=== PATIENT | female | born 1950 | race Caucasian/White ===

== ENCOUNTER 2024-08-18 23:48 | Emergency (ER) | payer MEDICARE, SELFPAY ==
--- NOTE | ~2024-08-18 | CT_ITS ---
EXAMINATION: CT HEAD WITHOUT CONTRAST CT FACIAL BONES WITHOUT CONTRAST CT CERVICAL SPINE WITHOUT CONTRAST CLINICAL INFORMATION: Fall. Head strike. Pain. COMPARISON: None available. TECHNIQUE: Contiguous axial imaging was performed through the head, facial bones and cervical spine without intravenous administration of contrast. Sagittal and coronal reformatted images also obtained. This CT examination was performed using dose optimization techniques as appropriate, variously including the following: *Automated exposure control *Adjustment of mA and/or kV according to patient size (this includes techniques or standardized protocols for targeted exams where dose is matched to indication/reason for exam; i.e. extremities or head) *Use of iterative reconstruction technique DLP: 894 mGy-cm FINDINGS: The lateral, third and fourth ventricles are normally aligned. The cortical sulci and basal cisterns are normally aligned as well. There is no acute territorial defects, hemorrhage or midline shift. The extra-axial spaces are unremarkable. Calvarium/scalp: Intact. Facial bones/maxillofacial sinuses: No fractures identified. The maxillofacial sinuses and mastoids are clear. The orbital structures are unremarkable. There is left infraorbital/left cheek soft tissue swelling. Cervical spine: There is grade 1 anterolisthesis C4 over C5 with mild reversal of the expected cervical spine curvature. There is diffuse mild to moderate cervical disc degenerative change with loss of disc space, endplate change and posterior osteophytes associated with diffuse mild to moderate facet osteoarthritic hypertrophic change with multilevel mild spinal canal and multilevel mild neuroforaminal narrowing. No fracture is seen. The soft tissues are unremarkable. The visualized upper lung clemens are clear. CT/CT facial bones wo IV con IMPRESSION: 1. No acute intracranial pathology. 2. No acute facial bone or cervical spine abnormalities. 3. Left infraorbital/left cheek soft tissue swelling. Electronically signed by: Rafael Lara MD 08/19/2024 03:19 AM EDT
--- NOTE | ~2024-08-18 | CT_ITS ---
EXAMINATION: CT HEAD WITHOUT CONTRAST CT FACIAL BONES WITHOUT CONTRAST CT CERVICAL SPINE WITHOUT CONTRAST CLINICAL INFORMATION: Fall. Head strike. Pain. COMPARISON: None available. TECHNIQUE: Contiguous axial imaging was performed through the head, facial bones and cervical spine without intravenous administration of contrast. Sagittal and coronal reformatted images also obtained. This CT examination was performed using dose optimization techniques as appropriate, variously including the following: *Automated exposure control *Adjustment of mA and/or kV according to patient size (this includes techniques or standardized protocols for targeted exams where dose is matched to indication/reason for exam; i.e. extremities or head) *Use of iterative reconstruction technique DLP: 894 mGy-cm FINDINGS: The lateral, third and fourth ventricles are normally aligned. The cortical sulci and basal cisterns are normally aligned as well. There is no acute territorial defects, hemorrhage or midline shift. The extra-axial spaces are unremarkable. Calvarium/scalp: Intact. Facial bones/maxillofacial sinuses: No fractures identified. The maxillofacial sinuses and mastoids are clear. The orbital structures are unremarkable. There is left infraorbital/left cheek soft tissue swelling. Cervical spine: There is grade 1 anterolisthesis C4 over C5 with mild reversal of the expected cervical spine curvature. There is diffuse mild to moderate cervical disc degenerative change with loss of disc space, endplate change and posterior osteophytes associated with diffuse mild to moderate facet osteoarthritic hypertrophic change with multilevel mild spinal canal and multilevel mild neuroforaminal narrowing. No fracture is seen. The soft tissues are unremarkable. The visualized upper lung clemens are clear. CT/CT cervical spine wo IV con IMPRESSION: 1. No acute intracranial pathology. 2. No acute facial bone or cervical spine abnormalities. 3. Left infraorbital/left cheek soft tissue swelling. Electronically signed by: Rafael Lara MD 08/19/2024 03:19 AM EDT
[2024-08-18 23:51] VITALS: BP 169/99; PULSE 104; PULSE 79; RESP 22; TEMP 36.3; O2SAT 97; O2SAT 98; BMI 16.9
[2024-08-19 00:01] VITALS: BP 169/99; PULSE 73; RESP 20; TEMP 36.3
[2024-08-19 00:04] VITALS: BP 169/99; PULSE 73; RESP 20; TEMP 36.3; O2SAT 97
--- NOTE | 2024-08-19 00:04 | ECG_ITS ---
Test Reason : FALL Blood Pressure : / mmHG Vent. Rate : 074 BPM Atrial Rate : 074 BPM P-R Int : 142 ms QRS Dur : 076 ms QT Int : 424 ms P-R-T Axes : 050 079 082 degrees QTc Int : 470 ms Normal sinus rhythm Normal ECG No previous ECGs available Referred By: Generic ED Physician Electronically Signed By:Enrique Green
[2024-08-19 01:17] LABS: Appearance Urine Clear; Color Urine Yellow; Glucose Urine UA Negative (Negative); Leukocyte Esterase Urine Negative (Negative); Nitrite Urine Negative (Negative); PH 6.5 (5.0-9.0); Specific Gravity - Urine <= 1.005 (1.005-1.025); Urine Blood Negative (Negative); Urine Ketones Negative (Negative); Urine Protein Negative (Neg-Trace)
[2024-08-19 01:21] LABS: Bacteria Urine Trace (None Seen); Hyaline Casts Urine 0-2 /LPF (0-2); RBC Urine 0-2 /HPF (0-2); Squamous Epithelial Cell Urine 0-2 /HPF (0-2); WBC Urine 0-5 /HPF (0-5)
[2024-08-19 02:05] LABS: Amphetamine Screen Urine Not Detected (Not Detect); Barbiturates, Urine Not Detected (Not Detect); Benzodiazepines Screen Urine Not Detected (Not Detect); Buprenorphine Scr Not Detected (Not Detect); Cannabinoid Screen Urine Not Detected (Not Detect); Cocaine Screen Urine Not Detected (Not Detect); Fentanyl, urine Not Detected (Not Detect); Methadone Screen, Urine Not Detected (Not Detect); Opiate Screen Urine Not Detected (Not Detect); Oxycodone Screen Urine Not Detected (Not Detect); Phencyclidine Screen Urine Not Detected (Not Detect)
[2024-08-19 02:07] LABS: Basophils Percent Auto 0.5 % (0-2); Eosinophils Percent Auto 0.5 % (0-4); Hemoglobin 13.3 g/dl (12.0-16.0); Imm Gran Abs Auto 0.01 X10*3/uL (0.00-0.03); Imm Gran Pct Auto 0.2 % (0.0-0.4); MANUAL DIFF FLAG NO; Mean Corpuscular Hemoglobin 33.1 pg (27.0-33.0); Mean Corpuscular Volume 94.5 fL (80.0-98.0); Mean Platelet Volume 9.6 fL (9.4-12.3); Monocytes Absolute Auto 0.2 X10*3/uL (0.1-1.2); Monocytes Percent Auto 3.9 % (2-11); Neutrophils Absolute Auto 3.1 x10*3/uL (2.0-8.3); Neutrophils Percent Auto 71.9 % (45-73); Platelet Count 303 X10*3/uL (160-400); Red Blood Count 4.02 X10*6/uL (4.20-5.50); Red Cell Distribution Width 13.2 % (11.0-16.0); White Blood Count 4.4 X10*3/uL (4.8-10.8)
[2024-08-19 02:31] LABS: Troponin-I High Sensitivity 2.8 ng/L (<3.5-17.0)
[2024-08-19 02:33] LABS: Alanine Aminotransferase 15 U/L (0-31); Albumin Level 4.3 g/dL (3.5-5.0); Alkaline Phosphatase 64 U/L (39-117); Anion Gap 21 (12-20); Aspartate Amino Transferase 44 U/L (5-31); Bilirubin Total 0.2 mg/dL (0.0-1.0); Blood Urea Nitrogen 6 mg/dL (9-16); Calcium 9.6 mg/dL (8.4-10.2); Carbon Dioxide 21 mmol/L (22-29); Chloride 109 mmol/L (96-108); Creatinine Clr Calc Pharmacy 46.8; Estimated Glomerular Filt Rate > 60; Ethanol 301 mg/dL; Glucose Random 81 mg/dL (60-115); Potassium 4.2 mmol/L (3.3-5.1); Sodium 147 mmol/L (135-145); Total Protein 7.1 g/dL (6.5-8.0)
--- NOTE | 2024-08-19 03:00 | ED_ITS ---
HPI - Fall General Chief Complaint: Fall Stated Complaint: fall ETOH Time Seen by Provider: 08/19/24 00:26 Source: patient and EMS Mode of arrival: EMS Limitations: no limitations History of Present Illness ED Provider: Dr. Emilie Chang HPI Narrative: Patient comes to the emergency room via ambulance. Patient was found face down on a sidewalk. EMS brought her to emergency room. Patient admits that she has been drinking a lot of alcohol. Patient denies SI or HI. Patient states that she does not quite remember what happened but admits that she has been drinking a lot of alcohol. Patient denies using drugs. Patient states that she has fallen multiple times, has ecchymosis that different stages of healing. the patient not sure if she hit her head or lost consciousness. States that she has no headache no neck pain, patient states that she feels completely at baseline. Related Data Allergies Allergy/AdvReac Type Severity Reaction Status Date / Time tetracycline Allergy Unknown Verified 08/18/24 23:57 Review of Systems 2 Review of Systems: Constitutional : No Weight loss, No Fever, No Chills, No Night Sweats, No Fatigue, No Malaise ENT/Mouth : No Hearing loss, No Ear Pain, No Nasal Congestion, No Sinus Pain, No Hoarseness, No sore throat, No Rhinorrhea, No Swallowing Difficulty Eyes: No Eye Pain, No Swelling, No Redness, No Foreign Body, No Discharge, No Vision Changes Cardiovascular : No Chest Pain, No SOB, No Dyspnea on Exertion, No Orthopnea, No Edema, No Palpitations Respiratory : No Cough, No Sputum, No Wheezing, No Smoke Exposure, No Dyspnea Gastrointestinal : No Nausea, No Vomiting, No Diarrhea, No Constipation, No abdominal Pain, No Hematochezia, No Melena Genitourinary : no irregular bleeding, No Dysuria, No Urinary Frequency, No Hematuria, No Urinary Incontinence, No Urgency, No Flank Pain, No Urinary Flow Changes, No Hesitancy Musculoskeletal : complaining of chronic swelling and ecchymosis of fingers from previous falls, no acute pain at this time Skin : complaining of multiple abrasions and ecchymosis from falls,No Skin Lesions, No rash Neuro : No Weakness, No Numbness, No Paresthesias, No Loss of Consciousness, No Dizziness, No Headache Psych : No Anxiety/Panic, No Depression, No SI/HI/AH/VH, admits to drinking alcohol Heme/Lymph: No Bruising, No Bleeding,No Lymphadenopathy Endocrine : No Polyuria, No Polydipsia, No Temperature Intolerance [facility] Past Medical History Medical History Alcohol abuse Social History Social History Alcohol intake: current Smoked in Last 30 Days: No Use of substances other than those prescribed or required for medical reasons: No Do you have a plan to hurt others: No Plan Physical Exam 2 Vital Signs: Vital Signs: Last Vital Signs Temp 97.4 F 08/19/24 00:04 Pulse 73 08/19/24 00:04 Resp 20 08/19/24 00:04 BP 169/99 H 08/19/24 00:04 Pulse Ox 97 08/19/24 00:04 O2 Del Method Room Air 08/19/24 00:04 BMI result Body Mass Index 16.9 Const: Other: Appearance: Alert. Oriented X3. No acute distress. patient is clinically sober Eyes: Pupils equal, round and reactive to light. ENT: Pharynx normal. Neck: Normal inspection. Neck supple. No lymph nodes noted. No crepitus CVS: Normal heart rate and rhythm. Pulses normal. Normal S1 and S2 Respiratory: No respiratory distress. Breath sounds normal. No Wheezing. No rales Abdomen: Soft and nontender. No rigidity. No distention. Skin: Skin warm and dry. Normal skin color. Normal skin turgor. Extremities: ecchymosis in the fingers of the left hand, multiple scrapes throughout the face , ecchymosis in the forehead and around the eyes, not raccoon - eyes ecchymosis Neuro: Oriented X 3. No motor deficit. No sensory deficit. Moving all extremities. No slurred speech. CN 2 through 12 grossly intact Psych: calm, cooperative, normal affect Course Course Course Narrative: patient's CT scans of the head face cervical spine pending. Patient states that she feels completely at baseline. Patient requesting to be discharged home . Patient declined detox after discussing with the patient that you do not have her CT scans yet. Once we know that it her brain cervical spine and facial bones do not have any fracture, she can be discharged safely, patient agrees with plan. Patient agrees to stay at least until the morning to figure out at ride home - head/ cervical spine/ facial bones CT pending sign-out given to Dr. Strickland Medical Decision Making Medical Decision Making [facility] Narrative: my interpretation head CT cervical spine CT and facial bone CT: No obvious acute abnormality - patient will remain in the ED until tomorrow and be discharged. - Patient agrees with plan - physician observation started at 03:48 - sign-out given to my colleague Dr. Strickland Differential Diagnosis Differential Diagnoses: The differential diagnosis associated with the presentation includes ( contusion, concussion, intracranial bleed, patient will fractures) Admission/Observation Consideration of admission/observation: Escalation of care including admission/observation considered ( given patient's presentation and history, observation was considered) Lab Data [facility] Lab Attestation statement: I reviewed the patient's lab results. 08/19/24 02:01 08/19/24 02:01 Labs: Lab Results 08/19/24 08/19/24 Range/Units 01:10 02:01 WBC 4.4 L (4.8-10.8) X10*3/uL RBC 4.02 L (4.20-5.50) X10*6/uL Hgb 13.3 (12.0-16.0) g/dl Hct 38.0 (37.0-47.0) % MCV 94.5 (80.0-98.0) fL MCH 33.1 H (27.0-33.0) pg MCHC 35.0 (31.0-35.0) g/dl RDW 13.2 (11.0-16.0) % Plt Count 303 (160-400) X10*3/uL MPV 9.6 (9.4-12.3) fL Immature Gran % (Auto) 0.2 (0.0-0.4) % Neut % (Auto) 71.9 (45-73) % Lymph % (Auto) 23.0 (20-40) % [place] % (Auto) 3.9 (2-11) % Eos % (Auto) 0.5 (0-4) % Baso % (Auto) 0.5 (0-2) % Lymph # (Auto) 1.0 L (1.2-4.9) X10*3/uL [place] # (Auto) 0.2 (0.1-1.2) X10*3/uL Eos # (Auto) 0.0 (0.0-0.4) X10*3/uL Baso # (Auto) 0.0 (0.0-0.2) X10*3/uL Abs Immat Gran (auto) 0.01 (0.00-0.03) X10*3/uL Absolute Neuts (auto) 3.1 (2.0-8.3) x10*3/uL Absolute Nucleated RBC 0.000 (0.0-0.012) X10*3/uL Nucleated RBC % (auto) 0.0 (0.0-0.2) /100WBC Sodium 147 H (135-145) mmol/L Potassium 4.2 (3.3-5.1) mmol/L Chloride 109 H (96-108) mmol/L Carbon Dioxide 21 L (22-29) mmol/L Anion Gap 21 H (12-20) BUN 6 L (9-16) mg/dL Creatinine 0.66 (0.5-1.4) mg/dL Estim Creat Clear Calc 46.8 Estimated GFR > 60 Random Glucose 81 (60-115) mg/dL Calcium 9.6 (8.4-10.2) mg/dL Total Bilirubin 0.2 (0.0-1.0) mg/dL AST 44 H (5-31) U/L ALT 15 (0-31) U/L Alkaline Phosphatase 64 (39-117) U/L Troponin I High Sens 2.8 (<3.5-17.0) ng/L Total Protein 7.1 (6.5-8.0) g/dL Albumin 4.3 (3.5-5.0) g/dL Urine Color Yellow Urine Appearance Clear Urine pH 6.5 (5.0-9.0) Ur Specific [place] <= 1.005 (1.005-1.025) Urine Protein Negative (Neg-Trace) mg/dL Urine Glucose (UA) Negative (Negative) mg/dL Urine Ketones Negative (Negative) mg/dL Urine Blood Negative (Negative) Urine Nitrite Negative (Negative) Ur Leukocyte Esterase Negative (Negative) Urine RBC 0-2 (0-2) /HPF Urine WBC 0-5 (0-5) /HPF Ur Squamous Epith Cells 0-2 (0-2) /HPF Urine Bacteria Trace (None Seen) Hyaline Casts 0-2 (0-2) /LPF Urine Opiates Screen Not Detected (Not Detect) Ur Buprenorphine Scrn Not Detected (Not Detect) ng/mL Ur Oxycodone Screen Not Detected (Not Detect) ng/mL Urine Methadone Screen Not Detected (Not Detect) ng/mL Urine Fentanyl Screen Not Detected (Not Detect) Ur Barbiturates Screen Not Detected (Not Detect) Ur Phencyclidine Scrn Not Detected (Not Detect) Ur Amphetamines Screen Not Detected (Not Detect) U Benzodiazepines Scrn Not Detected (Not Detect) Urine Cocaine Screen Not Detected (Not Detect) U Marijuana (THC) Screen Not Detected (Not Detect) Ethyl Alcohol 301 H* mg/dL Independent Interpretation I performed an independent interpretation of an: CT Scan Radiology Impression Discussion of test interpretation with radiology: I have reviewed the radiologist's reading. Radiologist Impression: The lateral, third and fourth ventricles are normally aligned. The cortical sulci and basal cisterns are normally aligned as well. There is no acute territorial defects, hemorrhage or midline shift. The extra-axial spaces are unremarkable. Calvarium/scalp: Intact. Facial bones/maxillofacial sinuses: No fractures identified. The maxillofacial sinuses and mastoids are clear. The orbital structures are unremarkable. There is left infraorbital/left cheek soft tissue swelling. Cervical spine: There is grade 1 anterolisthesis C4 over C5 with mild reversal of the expected cervical spine curvature. There is diffuse mild to moderate cervical disc degenerative change with loss of disc space, endplate change and posterior osteophytes associated with diffuse mild to moderate facet osteoarthritic hypertrophic change with multilevel mild spinal canal and multilevel mild neuroforaminal narrowing. No fracture is seen. The soft tissues are unremarkable. The visualized upper lung clemens are clear. Independent Historian Clinical information obtained from an independent historian. History obtained from or confirmed by: EMS Critical Care Time Critical Care Time Critical Care Time: Yes Total Critical Care Time: 30 Attestation: I have personally provided critical care time. Time includes review of lab data, radiology results, discussion with consultants, and monitoring for potential decompensation. Intervention performed as documented. Discharge Plan Discharge Clinical Impression: Alcohol intoxication, Multiple contusions Patient Disposition: Still a Patient
[2024-08-19 03:56] VITALS: BP 138/77; PULSE 95; RESP 22; TEMP 36.7; O2SAT 97
--- NOTE | 2024-08-19 07:29 | PC.NURSE ---
Spoke to pt's ex per pt request ([place] [phone]) to confirm/touch base about pt's discharge ride home. I just got off a plane from [employer], someone will be there within an hour to pick her up.
[2024-08-19 08:26] VITALS: BP 149/68; PULSE 94; RESP 16; TEMP 36.9; O2SAT 97
--- NOTE | 2024-08-19 08:37 | PC.NURSE ---
Pt ambulatory with a steady gait to the bathroom. Still awaiting pt's ride.
[2024-08-19 09:06] VITALS: BP 149/68; PULSE 94; RESP 16; TEMP 36.9; O2SAT 97
== END 2024-08-19 09:07 | disposition still patient (30) ==
PROVIDERS: Emergency Provider Emergency Medicine
DX: S60.222A Contusion of left hand, initial encounter (principal); M54.2 Cervicalgia; R51.9 Headache, unspecified; Y90.8 Blood alcohol level of 240 mg/100 ml or more; F10.129 Alcohol abuse with intoxication, unspecified; W18.30XA Fall on same level, unspecified, initial encounter; Y93.01 Activity, walking, marching and hiking; Y92.89 Other specified places as the place of occurrence of the external cause; Y99.8 Other external cause status; Z51.81 Encounter for therapeutic drug level monitoring; Z79.899 Other long term (current) drug therapy
CPT/HCPCS: 36415; 70450; 70486; 72125; 80053; 80307; 81001; 84484; 85025; 93005; 99285

== ENCOUNTER → 2024-08-19 00:04 | Outpatient (BNV) | payer MEDICARE, SELFPAY | PROVIDERS: Emergency Provider Emergency Medicine; Visit Provider Internal Medicine Cardiovascular Disease | DX: R55 Syncope and collapse (principal) | CPT/HCPCS: 93010 ==

== ENCOUNTER 2024-09-12 00:39 | Emergency (ER) | payer MEDICARE, SELFPAY ==
[2024-09-12 00:46] VITALS: BP 122/70; PULSE 66; O2SAT 98
[2024-09-12 00:48] VITALS: BMI 18.7
[2024-09-12 01:40] VITALS: BP 101/54; PULSE 68; RESP 16; TEMP 36.4; O2SAT 95
[2024-09-12 01:41] VITALS: PULSE 68
--- NOTE | 2024-09-12 03:39 | PC.NURSE ---
Pt refusing labs
--- NOTE | 2024-09-12 04:50 | ED.ALCOHOL ---
HPI - Alcohol General Chief Complaint: ETOH/Substance Use Stated Complaint: ETOH Time Seen by Provider: 09/12/24 04:50 Source: patient Mode of arrival: EMS Limitations: no limitations History of Present Illness ED Provider: Dr. Jason Stover HPI narrative: 74-year-old female with no significant past medical history who presents emergency department for evaluation of alcohol intoxication and wandering in the street. Information was obtained from paramedics. The patient was found by [place] transit authority police officer. The patient was walking down the middle of the street, she was confused and did not know where she was but was able to identify her home address. She did admit to using alcohol but denied using any other drugs. At the time my evaluation patient was awake and alert she appears to be sober. She has no complaints and is refusing blood work and medical treatment. Related Data Allergies Allergy/AdvReac Type Severity Reaction Status Date / Time tetracycline Allergy Unknown Verified 09/12/24 00:51 Review of Systems Review of Systems: Yes all other systems are reviewed and are negative PMFSH Past Medical History Medical History Alcohol abuse Social History Social History Alcohol intake: current Smoked in Last 30 Days: No Use of substances other than those prescribed or required for medical reasons: No Advance Directives: No Do you have a plan to hurt others: No Plan Physical Exam ED Vital Signs: Vital Signs - 24 hr 09/12/24 01:40 Temperature 97.5 F Pulse Rate 68 Respiratory Rate 16 Blood Pressure 101/54 L Pulse Oximetry 95 Oxygen Delivery Method Room Air BMI result Body Mass Index 18.7 Vital signs were normal Exam: General: Awake, alert in no distress Head: Normocephalic, atraumatic EENT: PERRL, Lids normal, sclera normal, conjunctiva normal, nose normal , ears normal, throat without erythema or exudates Neck: Supple, no adenopathy Lung: breath sounds symmetric, no wheezing, rales or rhonchi Chest: symmetric movement, nontender Heart: regular rate and rhythm, normal S1, S2 no murmurs or rubs Abdomen: soft, non-tender, nondistended, normal bowel sounds Back: no vertebral tenderness, no CVAT Extremities: Patient has a ecchymotic contusion to her lateral proximal forearm, there is a small avulsion which is bleeding. She was full range of motion of her arm without any limitations. Neuro: Awake, alert, oriented, normal speech, cranial nerves intact, moves all extremities symmetrically Psych: Pleasant, cooperative Medical Decision Making Medical Decision Making MDM Narrative: 74-year-old female with no significant past medical history who was brought to emergency department by ambulance after she was found wandering down the middle of the street. She did admit to drinking alcohol. The patient's physical examination did reveal a ecchymotic contusion to her left proximal lateral forearm with a small bleeding abrasion. Differential diagnosis: ?Includes but is not limited to alcohol intoxication, substance intoxication Course: 05:35 The patient refused blood in urine testing. She did let us clean her left forearm abrasion and dressed with bacitracin and a gauze dressing. Patient refused tetanus vaccination. At this time the patient is sober and is competent to refuse treatment and evaluation. A advised the patient to apply bacitracin twice a day to her left forearm abrasion. She was also advised to contact her PCP to determine when her last tetanus vaccination was given. I told her if it was not given within 5 years then she should get a tetanus vaccination either from her PCP or a local pharmacy. Patient was given printed and verbal instructions and discharged home. Admission/Observation Consideration of admission/observation: Escalation of care including admission/observation considered (No) Independent Historian Clinical information obtained from an independent historian. History obtained from or confirmed by: EMS Chronic Conditions Patient?s care impacted by: Other (Alcohol use disorder) Discharge Plan Discharge Clinical Impression: Alcoholic intoxication Qualifiers: Complication of substance-induced condition: uncomplicated Qualified Code(s): F10.920 - Alcohol use, unspecified with intoxication, uncomplicated Contusion of forearm, left Qualifiers: Encounter type: initial encounter Qualified Code(s): S50.12XA - Contusion of left forearm, initial encounter Abrasion of forearm, left Qualifiers: Encounter type: initial encounter Qualified Code(s): S50.812A - Abrasion of left forearm, initial encounter Patient Disposition: Home, Self-Care Additional Instructions: You were found by a [place] transit authority police officer, you were walking in the middle of the street and you did not know where you were therefore they called an ambulance and had your brought to emergency department for evaluation. I suspect that you may have been intoxicated and this was the reason for your contusion. You should consider getting help with your alcohol use disorder. You do have a contusion and abrasion to your left forearm which was cleaned and covered with bacitracin. Apply bacitracin twice a day to this wound for 1 week to try to prevent an infection. I offered to give you a tetanus shot but you refused. You should check with your primary care provider to see if your tetanus status is up-to-date. If you have not had a tetanus shot within 5 years then you need to get a tetanus vaccination from your primary care provider or from a local pharmacy. Follow-up with your doctor in 2 days. Please return to the emergency department if your symptoms get worse or if you develop any symptoms that are concerning to you. Print Language: Azeri
[2024-09-12 06:00] VITALS: RESP 20
[2024-09-12] MEDS: Bacitracin Oint 0.9 GM PACKET 1 APPL TOPICAL (06:00)
[2024-09-12 06:17] VITALS: BP 98/65; PULSE 72; RESP 20; TEMP 36.6; O2SAT 98
== END 2024-09-12 06:19 | disposition home or self-care (01) ==
PROVIDERS: Emergency Provider Emergency Medicine Emergency Medical Services
DX: F10.920 Alcohol use, unspecified with intoxication, uncomplicated (principal); S50.12XA Contusion of left forearm, initial encounter; S50.812A Abrasion of left forearm, initial encounter; X58.XXXA Exposure to other specified factors, initial encounter; Y93.9 Activity, unspecified; Y92.9 Unspecified place or not applicable; Y99.9 Unspecified external cause status; R41.0 Disorientation, unspecified
CPT/HCPCS: 99283; 99284